=== PATIENT | female | born 1975 | race Two or more races ===

== ENCOUNTER 2022-03-31 21:54 | Emergency (ER) | payer MEDICAID ==
[~2022-03-31] VITALS: Ht 154.9 cm; Wt 90.7 kg
[2022-03-31 23:02] LABS: Alcohol, Urine < 3.0 mg/dL (0-10); Amphetamine Screen, Urine NEGATIVE (NEGATIVE); Barbiturate Scree,Urine NEGATIVE (NEGATIVE); Benzodiazephine Screen, Urine NEGATIVE (NEGATIVE); Cannabinoid Screen, Urine NEGATIVE (NEGATIVE); Cocaine Screen, Urine NEGATIVE (NEGATIVE); Opiate Scree,Urine NEGATIVE (NEGATIVE); Phencyclidine Screen, Urine NEGATIVE (NEGATIVE)
[2022-04-01 00:15] VITALS: BP 145/81
== END 2022-03-31 23:28 | disposition home or self-care (01) ==
LOC: ER 21:54
DX: Z01.812 Encounter for preprocedural laboratory examination (principal); Z88.6 Allergy status to analgesic agent
CPT/HCPCS: 80307

== ENCOUNTER 2022-09-13 18:19 | Emergency (ER) | payer MEDICAID ==
[~2022-09-13] VITALS: Ht 154.9 cm; Wt 96.5 kg
[2022-09-13 20:12] LABS: Alcohol, Urine < 3.0 mg/dL (0-10); Amphetamine Screen, Urine NEGATIVE (NEGATIVE); Barbiturate Scree,Urine NEGATIVE (NEGATIVE); Benzodiazephine Screen, Urine NEGATIVE (NEGATIVE); Cannabinoid Screen, Urine NEGATIVE (NEGATIVE); Cocaine Screen, Urine NEGATIVE (NEGATIVE); Opiate Scree,Urine NEGATIVE (NEGATIVE); Phencyclidine Screen, Urine NEGATIVE (NEGATIVE)
[2022-09-13 22:40] VITALS: BP 152/94
== END 2022-09-13 23:08 | disposition home or self-care (01) ==
LOC: ER 18:21
DX: Z02.89 Encounter for other administrative examinations (principal); Z88.8 Allergy status to other drugs, medicaments and biological substances
CPT/HCPCS: 80307

== ENCOUNTER 2025-10-22 23:01 | Emergency (ER) | payer SELFPAY ==
[~2025-10-22] VITALS: Ht 154.9 cm; Wt 82.0 kg
[2025-10-22 23:06] VITALS: TEMP 97.6
[2025-10-22] MEDS: methylPREDNISolone SOD SUCC 125 MG/2 ML VL IV ONE (23:19)
[2025-10-22] MEDS: diphenhydrAMINE HCL 50 MG/1 ML VL IV ONE (23:19)
--- NOTE | 2025-10-22 23:19 | ED.PDOC ---
History of Present Illness HPI Comments 50-year-old female presents for chief complaint of allergic reaction status post known allergen exposure. Patient complaining of sudden onset of upper lip, and throat swelling, with associated shortness of breath, cough, nausea, and lightheadedness within the past 20 minutes after taking known allergen over -the-counter 600 mg ibuprofen at 2000, this evening. Patient denies taken on any allergy medication prior to ED arrival. She did not have a prescribed EpiPen at home. She denies having any chest pain, vomiting, rash, or further acute symptoms. Symptoms feel identical to prior allergic reactions in the past. She was taking ibuprofen for chronic arthritis pain. Chief Complaint: Allergic Reaction Time Seen by MD: 23:10 Primary Care Provider: NIKUNJ Gabriel Notes: Nurses Notes, Medications, Allergies Allergies: Coded Allergies: Ibuprofen (Verified Allergy, Unknown, 03/31/22) Information Source: Patient Mode of Arrival: Ambulatory Severity: Moderate Timing: Minutes Duration: Since onset Prehospital treatment: None Past Medical History PAST MEDICAL HISTORY: Arthritis Surgical History: Denies all surgeries FARM HAND History: No Pertinent FARM HAND History Family History Family History: Reviewed,noncontributory to illness, No family hx of Cancer, No family hx of DM, No family hx of Heart cassy, No family hx of HTN, No family hx ofKidney cassy, No family hx of Liver cassy, No family hx of Lung cassy, No family hx of Stroke Social History Smoker: Non-Smoker Alcohol: Denies ETOH Use Drugs: Denies Drug Use All Other Systems: Reviewed and Negative (Comprehensive review of systems are negative unless otherwise stated in HPI) Physical Exam General Appearance: Mild Distress, Obese HEENT: Normal ENT Inspection, Pharynx Normal, TMs Normal, Other (Angioedema to the upper lip) Neck: Full Range of Motion, Non-Tender, Normal, Normal Inspection Respiratory: Chest Non-Tender, Lungs Clear, No Accessory Muscle Use, No Respiratory Distress, Normal Breath Sounds, Other (Tachypneic) Cardiovascular: No Edema, No JVD, No Murmur, No Gallop, Normal Peripheral Pulses, Regular Rate/Rhythm Breast Exam: Deferred Gastrointestinal: No Organomegaly, Non Tender, No Pulsatile Mass, Normal Bowel Sounds, Soft Genitalia: Deferred Pelvic: Deferred Rectal: Deferred Extremities: No calf tenderness, Normal capillary refill, Normal inspection, Normal range of motion, Non-tender, No pedal edema Musculoskeletal : Apperance: Normal Neurologic: Alert, edge banding machine offbearer II-XII nml as Tested, No Motor Deficits, Normal Affect, Normal Mood, No Sensory Deficits Cerebellar Function: Normal Reflexes: Normal Skin: Dry, Normal Color, Warm Lymphatic: No Adenopathy Was a procedure done? Was a procedure done?: No Differential Dx Considerations may include: Anaphylaxis, angioedema, respiratory distress, hypoxemia, bronchospasm, among others X-Ray, Labs, Meds, VS Vital Signs Date Time Temp Pulse Resp B/P (MAP) Pulse Ox O2 Delivery O2 Flow Rate FiO2 10/23/25 02:10 69 20 104/49 (67) 97 10/22/25 23:40 63 12 100 Nasal Cannula* 4 36 10/22/25 23:14 20 100 Room Air* 0 21 10/22/25 23:10 84 16 129/95 (106) 100 10/22/25 23:06 20 99 Room Air* 0 21 10/22/25 23:06 97.6 92 20 190/115 99 97.6 Lab Test 10/22/25 23:15 Range/Units White Blood Count 11.4 H 4.4-10.8 10^3/uL Red Blood Count 4.72 4.0-5.20 10^6/uL Hemoglobin 14.0 12.2-16.2 g/dL Hematocrit 42.0 36.0-46.0 % Mean Corpuscular Volume 89.1 80.0-100.0 fL Mean Corpuscular Hemoglobin 29.6 28.0-32.0 pg Mean Corpuscular Hemoglobin Concent 33.2 32.0-36.0 g/dL Red Cell Distribution Width 13.4 11.8-14.3 % Platelet Count 258 140-450 10^3/uL Mean Platelet Volume 9.2 6.9-10.8 fL Neutrophils (%) (Auto) 41.2 37.0-80.0 % Lymphocytes (%) (Auto) 45.4 10.0-50.0 % Monocytes (%) (Auto) 8.4 0.0-12.0 % Eosinophils (%) (Auto) 4.4 0.0-7.0 % Basophils (%) (Auto) 0.6 0.0-2.0 % Neutrophils # (Auto) 4.7 1.6-8.6 10 ^3/uL Lymphocytes # (Auto) 5.2 0.4-5.4 10 ^3/uL Monocytes # (Auto) 1.0 0-1.3 10 ^3/uL Eosinophils # (Auto) 0.5 0-0.8 10 ^3/uL Basophils # (Auto) 0.1 0-0.2 10 ^3/uL Nucleated Red Blood Cells 0.0 % Sodium Level 141 136-145 mmol/L Potassium Level 3.6 3.5-5.1 mmol/L Chloride Level 105 98-107 mmol/L Carbon Dioxide Level 26 20-31 mmol/L Anion Gap 10 5-15 Blood Urea Nitrogen 16 9-23 mg/dL Creatinine 0.69 0.550-1.02 mg/dL Glomerular Filtration Rate Calc 107 >90 mL/min BUN/Creatinine Ratio 23.2 H 10.0-20.0 Serum Glucose 111 H 74-106 mg/dL Calcium Level 11.4 H 8.7-10.4 mg/dL Current Medications Medications (Trade) Dose Ordered Sig/Malou Route Start Time Stop Time Status Last Admin Diphenhydramine HCl (Benadryl Injection) 50 mg ONCE ONCE IV 10/22/25 23:15 10/22/25 23:16 DC 10/22/25 23:19 Epinephrine HCl 0.3 mg ONCE ONCE IM 10/22/25 23:15 10/22/25 23:16 DC 10/22/25 23:22 Famotidine (Pepcid Injection) 20 mg ONCE ONCE IV 10/22/25 23:15 10/22/25 23:16 DC 10/22/25 23:22 Methylprednisolone Sodium Succinate (Solu Medrol) 125 mg ONCE ONCE IV 10/22/25 23:15 10/22/25 23:16 DC 10/22/25 23:19 X-Ray, Labs, Meds, VS Comment Patient presenting with acute allergic reaction, consistent with anaphylaxis. Patient with upper lip swelling, complaining of shortness of breath, cough, nausea, dizziness. Patient with hoarse voice on my assessment. Lab work (CBC, BMP) to evaluate for evidence of severe anemia, electrolyte abnormality including hypokalemia, hyperkalemia, hypernatremia, hyponatremia, hyperglycemia, hypoglycemia, etc. Chest x-ray to evaluate for pneumonia, pneumothorax, volume overload. IV Solu-Medrol, Benadryl, Pepcid. IM epi Re-evaluate. Social determinant surveillance affecting care: Social determinants of health that will affect the patient's care: Poor health literacy (additional time provided an explanation) Poor access to outpatient care/followup (provided outpatient resources) Time of 1ST Reevaluation: 23:40 Reevaluation 1ST: Unchanged Patient Education/Counseling: Diagnosis, Treatment, Need For Follow Up Family Education/Counseling: No Family Present SEPSIS Sepsis Screen Date sepsis recognized/suspect: Oct 22, 2025 Time Sepsis recognized/suspect: 2309 Recent Procedure: No On Antibiotic Therapy: No Respiratory Rate >20: No Heart Rate >90: Yes Temp<36 C (96.8 F) or >38.3 C: No SBP <90 or MAP <65 mmHG: No New Acute Mental Status Change: No Is the patient on CPAP, BIPAP,: No Physician Orders Chest Portable (10/22/25 23:12) Acetaminophen Tablet (Tylenol Tablet) (10/23/25 03:15) Vital Signs Date Time Temp Pulse Resp B/P (MAP) Pulse Ox O2 Delivery O2 Flow Rate FiO2 10/23/25 02:10 69 20 104/49 (67) 97 10/22/25 23:40 63 12 100 Nasal Cannula* 4 36 10/22/25 23:14 20 100 Room Air* 0 21 10/22/25 23:10 84 16 129/95 (106) 100 10/22/25 23:06 20 99 Room Air* 0 21 10/22/25 23:06 97.6 92 20 190/115 99 97.6 Laboratory Tests Test 10/22/25 23:15 White Blood Count 11.4 10^3/uL (4.4-10.8) H Medications Medications Dose Ordered Sig/Malou Route Start Time Stop Time Status Last Admin Dose Admin Diphenhydramine HCl 50 mg ONCE ONCE IV 10/22/25 23:15 10/22/25 23:16 DC 10/22/25 23:19 Epinephrine HCl 0.3 mg ONCE ONCE IM 10/22/25 23:15 10/22/25 23:16 DC 10/22/25 23:22 Famotidine 20 mg ONCE ONCE IV 10/22/25 23:15 10/22/25 23:16 DC 10/22/25 23:22 Methylprednisolone Sodium Succinate 125 mg ONCE ONCE IV 10/22/25 23:15 10/22/25 23:16 DC 10/22/25 23:19 Departure 1 Departure Time of Disposition: 03:13 (On reassessment, patient's symptoms improved. Labs and imaging unremarkable. Upper lip swelling mostly resolved at this time. Patient feels comfortable going home. Patient observed in the ED for 4 hours with no evidence of rebound anaphylaxis. Will discharge with EpiPen, Pepcid, prednisone. Discussed with patient need for outpatient allergy follow up. Given strict return precaution PMD follow up.) Impression: Primary Impression: Anaphylaxis Qualified Codes: T78.2XXA - Anaphylactic shock, unspecified, initial encounter Additional Impressions: Lip swelling Acute dyspnea Disposition: HOME / SELF CARE / HOMELESS Condition: Stable e-Prescriptions Epinephrine (Anaphylaxis) (Auvi-Q) 0.1 Mg/0.1 Ml Inj 0.1 MG IJ O PRN for 1 Day, #1 INJ Prov: MIGNON KNOWLES MD 10/23/25 Famotidine (PEPCID TABLET) 20 Mg Tb 1 TAB PO BID for 5 Days, #10 TAB 5 Refills Prov: MIGNON KNOWLES MD 10/23/25 Prednisone (Prednisone) 20 Mg Tab 40 MG PO DAILY for 5 Days, #5 MG Prov: MIGNON KNOWLES MD 10/23/25 Discharged With: Self Critical Care Note Critical Care Time?: Yes (35 min-critical care time only) Stability Stability form required: No Heart Score Heart Score: Heart Score Response (Comments) Value History N/A 0 EKG N/A 0 Age N/A 0 Risk Factors N/A 0 Troponin N/A 0 Total 0 I personally scribed for MIGNON KNOWLES MD ([email or web address]) on 10/22/25 at 23:19. Electronically submitted by Yoan Mir ([email or web address]). I personally scribed for MIGNON KNOWLES MD ([email or web address]) on 10/22/25 at 23:29. Electronically submitted by Yoan Mir ([email or web address]). MIGNON KNOWLES MD Oct 22, 2025 23:19
[2025-10-22] MEDS: FAMOTIDINE (10MG/ML) 2ML VL IV ONE (23:22)
[2025-10-22 23:32] LABS: Hematocrit 42.0 % (36.0-46.0); Hemoglobin 14.0 g/dL (12.2-16.2); Mean Corpuscular Hemoglobin 29.6 pg (28.0-32.0); Mean Corpuscular Volume 89.1 fL (80.0-100.0); Nucleated Red Blood Cells % 0.0 %
[2025-10-22 23:40] VITALS: PULSE 63; RESP 12; O2SAT 100
[2025-10-22 23:45] LABS: Anion Gap 10 (5-15); Carbon Dioxide 26 mmol/L (20-31); Chloride 105 mmol/L (98-107); Potassium 3.6 mmol/L (3.5-5.1); Sodium 141 mmol/L (136-145)
[2025-10-22 23:46] LABS: Calcium 11.4 mg/dL (8.7-10.4)
--- NOTE | 2025-10-22 23:46 | DVH ---
CHEST RADIOGRAPH Indication: SOB Technique: Single frontal view of the chest was obtained COMPARISON: None FINDINGS: Lines and Tubes: None Lungs: Clear Pleura: No effusion. No pneumothorax. Cardiomediastinal contours: Unremarkable Bones: Unremarkable IMPRESSION: 1. No acute disease.
[2025-10-22 23:51] LABS: BUN/Creatinine Ratio 23.2 (10.0-20.0); Blood Urea Nitrogen 16 mg/dL (9-23); Glucose 111 mg/dL (74-106)
[2025-10-23 02:10] VITALS: BP 104/49; PULSE 69; RESP 20; O2SAT 97
[2025-10-23] MEDS ORDERED: EPIN0.1I11 IJ (03:16)
[2025-10-23] MEDS ORDERED: FAMO20TA10 PO (03:16)
[2025-10-23] MEDS ORDERED: PRED20TA2 PO (03:16)
[2025-10-23] MEDS: ACETAMINOPHEN 325 MG TAB PO ONE (03:22)
== END 2025-10-23 03:31 | disposition home or self-care (01) ==
LOC: ER 23:01
DX: T78.2XXA Anaphylactic shock, unspecified, initial encounter (principal); R22.0 Localized swelling, mass and lump, head; R06.00 Dyspnea, unspecified; M19.90 Unspecified osteoarthritis, unspecified site; Z88.6 Allergy status to analgesic agent; X58.XXXA Exposure to other specified factors, initial encounter; Y93.89 Activity, other specified; Y92.89 Other specified places as the place of occurrence of the external cause; Y99.8 Other external cause status
CPT/HCPCS: 36415; 71045; 80048; 85025; 96372; 96374; 96375; 99291; J0169; J1200; J2919; J3490